=== PATIENT | female | born 1990 | race American Indian/Alaskan Native ===

== ENCOUNTER 2017-05-24 08:30 | Emergency (ER) | payer MEDICAID ==
[2017-05-24 08:38] VITALS: BP 120/76
[2017-05-24 08:58] LABS: Basophils % (Auto) 0.2 % (0.0-1.8); Eosinophils % (Auto) 0.5 % (0.0-4.3); Hematocrit 37.4 % (30.3-42.9); Hemoglobin 12.5 gm/dl (10.1-14.3); Lymphocytes # (Auto) 1.6 K/mm3 (1.2-5.4); Lymphocytes % (Auto) 31.4 % (13.4-35.0); Mean Corpuscular HGB Conc 33 % (30-34); Mean Corpuscular Hemoglobin 29 pg (28-32); Mean Corpuscular Volume 87 fl (79-97); Monocytes # (Auto) 0.3 K/mm3 (0.0-0.8); Monocytes % (Auto) 6.7 % (0.0-7.3); Platelet Count 258 K/mm3 (140-440); Red Cell Distribution Width 15.8 % (13.2-15.2)
[2017-05-24 09:09] LABS: Alanine Aminotransferase 14 units/L (7-56); Albumin 3.9 g/dL (3.9-5); BUN/Creatinine Ratio 8; Blood Urea Nitrogen 4 mg/dL (7-17); Calcium 9.3 mg/dL (8.4-10.2); Hemolysis Index 1
[2017-05-24 10:19] LABS: Bacteria,Urine 3+ /HPF (Negative); Bilirubin,Urine NEG (Negative); Blood,Urine NEG (Negative); Color,Urine Yellow (Yellow); Mucus,Urine FEW /HPF; Protein,Urine <15 mg/dL mg/dL (Negative); Urobilinogen,Urine < 2.0 mg/dL (<2.0)
[2017-05-24] MEDS ORDERED: REGLAN IV ONE (11:57)
[2017-05-24] MEDS ORDERED: NACL 0.9% 1000 ML 1,000 ML IV ONE (11:57)
--- NOTE | 2017-05-24 12:01 | Emergency Department Report ---
HPI - General Chief Complaint: Headache Time Seen by Provider: 05/24/17 11:48 - HPI HPI: 26-year-old female presents to the emergency department with complaint of a three-day history of some nausea, vomiting or headache and pelvic cramping while about 18 weeks . With this she is with 4 live children. She has been taking Motrin for her symptoms without much relief. Headache is towards the right synagogue. She denies any vision change, slurred speech or any neurological deficits. She goes to [employer] for [employer]. She is not on any vitamins. She says that she does have a history of migraines or previous headaches but has been a while since she had one. Recent travel or sick contacts at home. ED Past Medical Hx - Past Medical History Previous Medical History?: No - Surgical History Past Surgical History?: Yes Additional Surgical History: HERNIA/ C SECTION - Social History Smoking Status: Never Smoker Substance Use Type: None - Medications Home Medications: Home Medications Medication Instructions Recorded Confirmed Last Taken Type Vit Calc,Iron,Folic 1 each PO QDAY #30 tablet 05/24/17 Unknown Rx [ Vitamins] ED Review of Systems ROS: Stated complaint: NAUSEA/VOMITING/CRAMPS Other details as noted in HPI Comment: All other systems reviewed and negative Constitutional: denies: chills, fever Eyes: denies: eye pain, eye discharge, vision change ENT: denies: ear pain, throat pain Respiratory: denies: cough, shortness of breath, wheezing Cardiovascular: denies: chest pain, palpitations Gastrointestinal: nausea, vomiting. denies: diarrhea Genitourinary: denies: urgency, dysuria, discharge Musculoskeletal: denies: back pain, joint swelling, arthralgia Skin: denies: rash, lesions Neurological: headache. denies: numbness Physical Exam - Physical Exam Vital Signs: Vital Signs 05/24/17 08:34 Temperature 98.6 F Pulse Rate 97 H Respiratory 18 Rate Blood Pressure 120/76 O2 Sat by Pulse 99 Oximetry Physical Exam: GENERAL: The patient is well-developed well-nourished. HENT: Normocephalic. Atraumatic. Patient has moist mucous membranes. EYES: Extraocular motions are intact. Pupils equal reactive to light bilaterally. NECK: Supple. Trachea is midline. CHEST/LUNGS: Clear to auscultation. There is no respiratory distress noted. HEART/CARDIOVASCULAR: Regular. There is no tachycardia. There is no murmur. ABDOMEN: Abdomen is soft, nontender. Patient has normal bowel sounds. There is no abdominal distention. SKIN: Skin is warm and dry. NEURO: The patient is awake, alert, and oriented. The patient is cooperative. The patient has no focal neurologic deficits. The patient has normal speech. MUSCULOSKELETAL: There is no tenderness or deformity. There is no limitation range of motion. There is no evidence of acute injury. ED Course Vital Signs 05/24/17 08:34 Temperature 98.6 F Pulse Rate 97 H Respiratory 18 Rate Blood Pressure 120/76 O2 Sat by Pulse 99 Oximetry ED Medical Decision Making - Lab Data Result diagrams: 05/24/17 08:44 05/24/17 08:41 - Radiology Data Radiology results: report reviewed EXAM: US OB gt; = 14 WEEKS FETUS HISTORY: preg, abd pain TECHNIQUE: Ultrasound evaluation of the gravid uterus PRIORS: None. FINDINGS: There is a single viable intrauterine with documented cardiac activity. Multiple ultrasound measurements are made to determine a composite gestational age. ratios are within normal limits. There is no evidence of placenta previa or abruption. The maternal cervix is closed. The quantity of visualized amniotic fluid appears grossly normal. No sonographic abnormality in the visualized portion of the anatomy. Heart rate: 154 beats per minute position: Variable Placental position: Posterior, grade 0 Maternal cervix length: 3.6cm Ultrasound estimated gestational age: 15 weeks 0 days Ultrasound estimated delivery date: 11/15/2017 LMP estimated gestational age: 15 weeks 6 days LMP estimated delivery date: 11/09/2017 IMPRESSION: Single viable intrauterine with the above parameters Transcribed By: BAL Dictated By: RUBI ARREOLA MD Electronically Authenticated By: RUBI ARREOLA MD Signed Date/Time: 05/24/17 1340 - Medical Decision Making 26 yo female presents with some nausea, vomiting and a headache while . Labs are unremarkable and do not show any signs of preeclampsia. Vital signs also stable currently being afebrile and no hypertension. Ultrasound shows a live intrauterine at 15 weeks. She was given some IV fluid, Reglan and upon reevaluation she is feeling much better. Her headache is resolved. There is no vaginal bleeding with concern for threatened miscarriage. She has good follow-up with [facility] [employer] [facility]. She has been given a refill of her vitamins. She will return the ER with any worsening of her symptoms or any acute distress. - Differential Diagnosis , food poisoning, gastritis, UTI Critical Care Time: No Critical care attestation.: If time is entered above; I have spent that time in minutes in the direct care of this critically ill patient, excluding procedure time. ED Disposition Clinical Impression: Dehydration Nausea & vomiting Qualifiers: Vomiting type: unspecified Vomiting Intractability: non-intractable Qualified Code(s): R11.2 - Nausea with vomiting, unspecified Qualifiers: Weeks of gestation: 15 weeks Qualified Code(s): Z3A.15 - 15 weeks gestation of Disposition: - TO HOME OR SELFCARE Is pt being admited?: No Condition: Stable Instructions: (ED), Dehydration (ED), Acute Nausea and Vomiting (ED) Additional Instructions: Increase your oral rehydration. Return to the emergency Department with any worsening of your symptoms or any acute distress. Follow-up with your [employer] in the next few days. Prescriptions: Vit Calc,Iron,Folic [ Vitamins] 1 each PO QDAY #30 tablet Referrals: [facility] [Provider Group] - 3-5 Days Time of Disposition: 13:58
--- NOTE | 2017-05-24 13:45 | Ultrasound Report ---
FINAL REPORT EXAM: US OB > = 14 WEEKS FETUS HISTORY: preg, abd pain TECHNIQUE: Ultrasound evaluation of the gravid uterus PRIORS: None. FINDINGS: There is a single viable intrauterine with documented cardiac activity. Multiple ultrasound measurements are made to determine a composite gestational age. ratios are within normal limits. There is no evidence of placenta previa or abruption. The maternal cervix is closed. The quantity of visualized amniotic fluid appears grossly normal. No sonographic abnormality in the visualized portion of the anatomy. Heart rate: 154 beats per minute position: Variable Placental position: Posterior, grade 0 Maternal cervix length: 3.6cm Ultrasound estimated gestational age: 15 weeks 0 days Ultrasound estimated delivery date: 11/15/2017 LMP estimated gestational age: 15 weeks 6 days LMP estimated delivery date: 11/09/2017 IMPRESSION: Single viable intrauterine with the above parameters
== END 2017-05-24 15:00 | disposition home or self-care (01) ==
LOC: ED 08:30
DX: O99.282 Endocrine, nutritional and metabolic diseases complicating pregnancy, second trimester (principal); E86.0 Dehydration; O26.892 Other specified pregnancy related conditions, second trimester; R51 Headache; R10.2 Pelvic and perineal pain; Z3A.15 15 weeks gestation of pregnancy
CPT/HCPCS: 36415; 76805; 80053; 81001; 85025; 96361; 96374; 99284; J2765; J7030